=== PATIENT | male | born 1955 | race Caucasian/White ===

== ENCOUNTER 2022-04-24 09:00 | Emergency (ER) | payer MEDICARE, BC, SELFPAY ==
[2022-04-24 09:02] VITALS: BP 185/94; PULSE 65; RESP 17; TEMP 36.6; O2SAT 95; BMI 27.1
--- NOTE | 2022-04-24 09:33 | ED.VIS.DYS ---
HPI History of Present Illness Chief Complaint: Shortness of Breath Informant: patient Onset/Context/Timing Onset: Days (5) Context: gradual Timing: Continuous Quality: Positive for Dyspnea on exertion and Wheezing Worsened by: Exertion Relieved by: Rest Associated Symptoms cough; Negative for rhinorrhea, post nasal drip, ear pain, fever, sore throat, chills or sweats Chest Pain: Positive for None Narrative Narrative: Patient presents with shortness of breath that has been getting worse over the past 5 days. Patient states his breathing is worse with exertion. Patient states he walks approximately 20 feet before he has to stop and catch his breath. Patient states his breathing is better with rest. Patient was seen in urgent care and was given prescriptions for prednisone, albuterol inhaler, and Zithromax. reports that they were told that he should feel much better in 24 hours. states there was no x-ray done at the urgent care since he was going to be treated with antibiotics and steroids even if the x-ray was negative. Patient denies any fevers or chills. Patient states he is coughing up some sputum but does not look at it. Patient denies any chest pain. PE Risk Factors: Negative for Cancer, OCP + Smoking + > 35, Prior DVT or PE, Recent immobilization or Recent surgery [facility] Medical History Carotid artery disease HTN (hypertension) Hyperlipidemia Home Medications atorvastatin 20 mg tablet 20 mg PO DAILY 11/12/20 [History Last Taken Unknown] hydrochlorothiazide 12.5 mg tablet 12.5 mg PO DAILY 11/12/20 [History Last Taken Unknown] losartan 100 mg tablet 100 mg PO DAILY 11/12/20 [History Last Taken Unknown] omeprazole 20 mg capsule,delayed release 20 mg PO DAILY 11/12/20 [History Last Taken Unknown] famotidine 20 mg tablet (Acid Electrolysis Operator (famotidine)) 20 mg PO DAILY 09/03/21 [History Last Taken Unknown] Allergy/AdvReac Type Severity Reaction Status Date / Time No Known Allergies Allergy Verified 04/24/22 09:00 Family History Father Cancer Mother Myocardial infarction Surgical History History of shoulder surgery Social History household members: spouse housing: house Smoking Status: Former smoker alcohol intake: never what type of physical activity do you participate in: none do you feel safe at home: Yes ROS ROS ED Constitutional Constitutional ED: Denies chills or fever(s) Eyes Eyes: Denies blurry vision or change in vision ENT ENT ED: Denies rhinorrhea or sore throat Cardiovascular Cardiovascular: Denies chest pain or palpitations Respiratory/Chest Respiratory/Chest: Reports cough and dyspnea Gastrointestinal Gastrointestinal: Reports nausea; Denies vomiting Genitourinary Genitourinary ED: Denies dysuria or hematuria Musculoskeletal Musculoskeletal: Reports back pain; Denies neck pain Integumentary Denies abscess or rash Neurologic Neurologic: Denies headache(s) or weakness Allergic/Immunologic Allergic/Immunologic ED: Denies mouth swelling or urticaria EXAM Physical Exam Const Vital Signs: 04/24/22 09:02 04/24/22 09:18 04/24/22 10:01 Temperature 97.9 F Temperature Source Temporal Pulse Rate 65 70 Respiratory Rate 17 16 Respiratory Effort Short of Breath Respiratory Depth Normal Respiratory Pattern Normal Normal Blood Pressure 185/94 H Blood Pressure Mean 124 Pulse Ox 95 Oxygen Delivery Method Room Air 04/24/22 10:01 04/24/22 09:57 Temperature 97.9 F Temperature Source Temporal Pulse Rate 95 Respiratory Rate 22 H Respiratory Effort Respiratory Depth Respiratory Pattern Blood Pressure 184/89 H Blood Pressure Mean 120 Pulse Ox 96 96 Oxygen Delivery Method Room Air Room Air Positive well nourished and well developed General Appearance ED: well developed HEENT Reports moist mucous membranes Neck supple and no JVD Resp normal respiratory effort Auscultation: wheezes expiratory wheezes and throughout Cardio regular rate, regular rhythm and no murmurs GI normal to inspection, nondistended, normoactive bowel sounds and non-tender Palpation: soft Extremity normal to inspection General Extremety ED: Negative for edema or tenderness General Extremity: Negative for edema Neuro oriented x3, CN's II-XII intact bilaterally and no sensory deficits noted Sensorium / Orientation: alert Motor Exam: strength 5/5 throughout Psych mental status grossly normal Skin no rashes or lesions noted MDM MDM MDM Narrative Medical decision making narrative: Patient was given a DuoNeb aerosol here. Patient was given IV fluids. EKG was obtained. On my interpretation, it showed a normal sinus rhythm with a rate of 63. [place] interval, QRS interval, and QTc intervals were all normal. [place] was normal. There are no acute ST or T wave changes. CBC was within normal limits. Comprehensive metabolic profile was within normal limits. High-sensitivity troponin was normal. D-dimer was normal. COVID-19 rapid antigen was obtained and was negative. Influenza A and influenza B rapid antigens were obtained and were negative. PA and lateral chest x-ray was obtained. There are 2 views. On my interpretation, lung calixto are clear. There is normal cardiac silhouette. Bony thorax is normal. There is no acute process noted. Radiologist also interpreted the x-ray and agrees. Patient was advised of his findings. Patient was advised that this is most likely a viral illness. Patient was instructed to continue his prednisone as prescribed. Patient was instructed to continue his inhaler as prescribed. Patient was instructed to take the last dose of his Zithromax. Patient was advised it may not improve his symptoms at all. Patient was instructed to follow-up with his primary care physician in 5 to 7 days. Patient understood and was agreeable with the plan. All questions were answered. Lab Data Attestation: I reviewed the patient's lab results. Labs: Laboratory Results - last 24 hr 04/24/22 04/24/22 04/24/22 09:53 09:53 09:53 WBC 5.1 RBC 4.40 L Hgb 13.8 Hct 39.7 L MCV 90.2 MCH 31.4 MCHC 34.8 RDW Std Deviation 40.4 RDW Coeff of [place] 12.1 Plt Count 237 MPV 8.9 Immature Gran % (Auto) 0.400 Neut % (Auto) 51.9 Lymph % (Auto) 32.5 [place] % (Auto) 14.6 H Eos % (Auto) 0.2 Baso % (Auto) 0.4 Absolute Neuts (auto) 2.6 Absolute Lymphs (auto) 1.65 Nucleated RBC % 0 Differential Comment SCANNED Reactive Lymphocytes 1+ D-Dimer Quant (PE/DVT) 0.48 Sodium 131 L Potassium 3.5 Chloride 98 Carbon Dioxide 25.0 Anion Gap 8 BUN 17 Creatinine 0.91 Estim Creat Clear Calc 69.46 Est GFR (MDRD) Af Amer 108 Est GFR (MDRD) Non-Af 89 BUN/Creatinine Ratio 18.8 Glucose 104 Calcium 8.9 Total Bilirubin 0.60 AST 57 H ALT 83 H Alkaline Phosphatase 50 Troponin I High Sens 9 Total Protein 7.5 Albumin 3.5 Globulin 4.0 Albumin/Globulin Ratio 0.9 Radiography Chest X-Ray - ED: 2 View, Read by ED Physician, Read by Radiologist and No Acute Disease Diagnostic Testing: Clinical Impression(s) from Imaging Studies Chest X-Ray 04/24/22 09:38 IMPRESSION: No acute cardiopulmonary abnormality. Old granulomatous disease. Electronically Signed: Herberth Eric MD at 10:37 EST , EKG Initial EKG: Attestation: I personally reviewed and interpreted this EKG as follows: Interpretation: Sinus Rhythm (63) and No Acute Injury Pattern Prior EKG tracings: not available for review Prior: No Prior Discharge Plan Triage Chief Complaint: Shortness of Breath ED Provider: Marc Valverde Dx/Rx/DC Orders Clinical Impression: Viral upper respiratory infection, HTN (hypertension) Instructions: ED URI, Viral W/ Wheezing (Adult) Prescriptions: No Action atorvastatin 20 mg tablet 20 mg PO DAILY Label Comments: TAKE ONE TABLET BY MOUTH DAILY IN THE EVENING losartan 100 mg tablet 100 mg PO DAILY Label Comments: TAKE 1 (ONE) TABLET DAILY IN THE EVENING hydrochlorothiazide 12.5 mg tablet 12.5 mg PO DAILY omeprazole 20 mg capsule,delayed release(DR/EC) 20 mg PO DAILY famotidine [Acid Electrolysis Operator (famotidine)] 20 mg tablet 20 mg PO DAILY Primary Care Provider: Heriberto Mcmahon Referrals: Heriberto Mcmahon MD [Primary Care Provider] - 5-7 Days Disposition Disposition: Home, Self Care
--- NOTE | 2022-04-24 09:38 | EKG12_ITS ---
Test Reason : SOB Blood Pressure : / mmHG Vent. Rate : 063 BPM Atrial Rate : 063 BPM P-R Int : 128 ms QRS Dur : 088 ms QT Int : 404 ms P-R-T Axes : 031 047 045 degrees QTc Int : 413 ms Normal sinus rhythm Normal ECG Confirmed by GIOVANNA SHELBY, MAXINE ([id number]), graphic editor CATRINA RAMEY ([id number]) on 04/25/2022 12:52:07 PM Referred By: RAJESH Confirmed By:MAXINE HEREDIA MD
--- NOTE | 2022-04-24 09:38 | RAD_ITS ---
EXAM: XR CHEST, 2 VIEWS CLINICAL INDICATION: Dyspnea TECHNIQUE: Frontal and lateral views of the chest. This report was created using iPosition report generation technology. COMPARISON: None. FINDINGS: LUNGS AND PLEURAL SPACES: Small dense nodules within both lungs consistent with old granulomatous disease. Lungs are otherwise clear. No pneumothorax. No effusion. HEART: Normal heart size. MEDIASTINUM: No mediastinal or hilar mass. BONES/JOINTS: No acute abnormality. SOFT TISSUES: Normal. LYMPH NODES: Small calcified hilar lymph nodes. RAD/Chest PA and Lateral IMPRESSION: No acute cardiopulmonary abnormality. Old granulomatous disease. Electronically Signed: Hreberth Eric MD at 10:37 EST ,
[2022-04-24] MEDS: Ipratropium/Albuterol Sulfate 3 ML AMPUL.NEB INHALATION (09:48)
[2022-04-24 09:57] VITALS: BP 184/89; PULSE 95; RESP 22; TEMP 36.6; O2SAT 96
[2022-04-24] MEDS: 0.9% Normal Saline 1,000 ML 1000 ML IV (09:59)
[2022-04-24 10:01] VITALS: PULSE 70; RESP 16; O2SAT 96
[2022-04-24 10:07] LABS: Absolute Lymphocyte Count 1.65 X10^3/uL (0.83-4.51); Absolute Neutrophil Count 2.6 X10^3/uL (2.0-7.7); Basophil# 0.02 X10^3/uL; Basophil% 0.4 % (0-1); Eosinophil# 0.01 X10^3/uL; Eosinophils% 0.2 % (0-5); Hematocrit 39.7 % (40-54); Hemoglobin 13.8 g/dL (13.0-16.5); Lymphocyte # 1.65 X10^3/ul (0.83-4.51); Lymphocyte % 32.5 % (19-41); Mean Corp Hgb Conc 34.8 g/dL (32-36); Mean Corpuscular Hgb 31.4 pg (27.0-32.0); Mean Corpuscular Volume 90.2 fL (80-94); Mean Platelet Vol. 8.9 fl (6.2-12.0); Monocyte# 0.74 X10^3/uL; Monocyte% 14.6 % (0-10); NRBC Flagged by Analyzer 0 % (0-5); Neutrophil # 2.63 X10^3/uL (2.7-7.7); Neutrophil % 51.9 % (47-70); POSITIVE MORPHOLOGY YES; Platelet Count 237 K/mm3 (150-450); RBC Distribution Width CV 12.1 % (11.6-14.6); RBC Distribution Width SD 40.4 fl (35.1-43.9); White Blood Count 5.1 K/mm3 (4.4-11.0)
[2022-04-24 10:29] LABS: D-Dimer Quantitative (DVT/PE) 0.48 FEU/ug/m (0.27-0.49)
[2022-04-24 10:35] LABS: Differential Indicated SCAN CRITERIA MET
[2022-04-24 10:36] LABS: ALB/GLOB Ratio 0.9 RATIO (0.9-2.4); AST(SGOT) 57 U/L (15-37); Alanine Aminotransfer ALT/SGPT 83 U/L (16-61); Albumin, Serum 3.5 g/dL (3.2-5.0); Alkaline Phosphatase 50 U/L (45-117); Anion Gap 8 (5-15); BUN 17 mg/dL (7-18); BUN/Creat Ratio 18.8 RATIO (10-20); Calcium,Total 8.9 mg/dL (8.5-10.1); Chloride 98 mmol/L (98-107); Creatinine, Serum 0.91 mg/dL (0.70-1.30); EST Glomerular Filtration Rate 89 mL/min (>60); Est Glom Filt Rate - Afr Amer 108 mL/min (>60); Estimated Creatinine Clearance 69.46 ml/min; Glucose 104 mg/dL (74-106); Potassium 3.5 mmol/L (3.5-5.1); Protein, Total 7.5 g/dL (6.4-8.2); Sodium Level 131 mmol/L (136-145); Troponin-I HS 9 pg/mL (3.0-78.0)
[2022-04-24 10:56] LABS: Differential Comment SCANNED; Reactive Lymphocyte 1+
[2022-04-24 12:45] VITALS: BP 153/96
== END 2022-04-24 12:47 | disposition home or self-care (01) ==
PROVIDERS: Emergency Provider Emergency Medicine; PCP Family Medicine; Visit Provider Emergency Medicine
DX: J06.9 Acute upper respiratory infection, unspecified (principal); I10 Essential (primary) hypertension; E78.5 Hyperlipidemia, unspecified; M54.9 Dorsalgia, unspecified; Z87.891 Personal history of nicotine dependence
CPT/HCPCS: 71046; 80053; 84484; 85025; 85379; 87428; 93005; 94640; 96360; 99251; 99252; 99284; J7030; G0463

== ENCOUNTER → 2023-01-19 | Outpatient (CLI) | payer MEDICARE, BC, SELFPAY ==
--- NOTE | 2023-01-19 11:04 | MRI_ITS ---
STUDY: MRI LEFT ELBOW REASON FOR EXAM: Male, 67 years old. pain and injury, pain posterior shoulder, possible torn bicep from elbow or shoulder injury TECHNIQUE: Standardized fat and water weighted pulse sequences were obtained in all 3 orthogonal planes. COMPARISON: None. FINDINGS: Normal radio-capitellum articulation. There is a moderate tendinosis of the common extensor tendon origin with a moderate partial deep surface tear. A small elbow joint effusion is also present. There is high-grade tearing of the anterior band of the radial collateral ligament. Normal ulnotrochlear articulation. Normal ulnar collateral ligamentous complex. There is a mild to moderate tendinosis of the common flexor tendon origin with a small partial deep surface tear. The cubital tunnel is normal, with a normal ulnar nerve. Normal biceps tendon and distal insertion. Normal lacertus fibrosis. Normal brachialis musculotendinous insertion. Normal triceps tendon and teno-osseous insertion. Normal olecranon process. The visualized distal humerus, proximal radius, and ulna are normal. The visualized muscles of the distal arm and proximal forearm are normal. The soft tissue structures are unremarkable. MRI/Upper Ext Joint Only(Routine) IMPRESSION: 1. High-grade tearing of the anterior band and the radial collateral ligament 2. Moderate tendinosis with moderate deep surface partial tearing of the common extensor tendon complex 3. Small elbow joint effusion 4. Mild to moderate tendinosis and partial deep surface tearing of the common flexor tendon complex. Electronically Signed: Xander Gibbons MD at 13:32 EDT ,
--- NOTE | 2023-01-19 11:04 | MRI_ITS ---
STUDY: MRI LEFT SHOULDER REASON FOR EXAM: Male, 67 years old. pain and injury, pain posterior shoulder, possible torn bicep from elbow or shoulder injury TECHNIQUE: Standardized fat and water weighted pulse sequences were obtained in all 3 orthogonal planes. COMPARISON: X-ray of the left shoulder dated January 13, 2023 FINDINGS: There is moderate supraspinatus tendinosis with tendon thickening, but without a demonstrated tendon tear. Normal infraspinatus tendon. Normal subscapularis tendon. Normal teres minor tendon. Normal supraspinatus muscle. Normal infraspinatus muscle. Normal subscapularis muscle. Normal teres minor muscle. The glenohumeral articulation is moderately narrowed. Normal humeral head and visualized proximal humerus. Normal biceps labral complex. There is high-grade near full-thickness tearing of the intracapsular aspect elongated biceps tendon. A small SLAP tear is present with high-grade degeneration and radial tearing of the free edge of the superior glenoid labrum. A small glenohumeral joint effusion is also present. Normal capsulo- ligamentous complex. Normal rotator interval. There is moderate osteoarthritis of the acromioclavicular articulations. There is a Type II morphology (curved), with a neutral orientation. There is no subacromial-subdeltoid bursal fluid. Normal visualized coracohumeral and coracoacromial ligaments. Normal quadrilateral space. Normal axillary space. Normal deltoid muscle. Normal trapezius muscle. MRI/Upper Ext Joint Only(Routine) IMPRESSION: 1. High-grade near full-thickness tearing of the intracapsular aspect elongated biceps tendon 2. A small SLAP tear is present with high-grade degeneration and radial tearing of the free edge of the superior glenoid labrum. 3. Moderate narrowing of the glenohumeral articulation 4. Moderate supraspinatus tendinosis Electronically Signed: Xander Gibbons MD at 13:37 EDT ,
== END | disposition home or self-care (01) ==
PROVIDERS: PCP Family Medicine; Referring Provider Physician Assistant; Visit Provider Physician Assistant
DX: S46.202A Unspecified injury of muscle, fascia and tendon of other parts of biceps, left arm, initial encounter (principal)
CPT/HCPCS: 73221

== ENCOUNTER → 2024-03-19 | Outpatient (CLI) | payer OTHER, SELFPAY | END | disposition home or self-care (01) | PROVIDERS: PCP Family Medicine; Referring Provider Physician Assistant; Visit Provider Physician Assistant | DX: S46.912A Strain of unspecified muscle, fascia and tendon at shoulder and upper arm level, left arm, initial encounter (principal) | CPT/HCPCS: 73030 ==

== ENCOUNTER → 2024-04-25 | Outpatient (CLI) | payer OTHER, MEDICARE, SELFPAY ==
--- NOTE | 2024-04-25 06:44 | MRI_ITS ---
STUDY: MRI LEFT SHOULDER REASON FOR EXAM: Male, 68 years old. Shoulder strain. TECHNIQUE: Standardized fat and water weighted pulse sequences were obtained in all 3 orthogonal planes. COMPARISON: None. FINDINGS: There is a full-thickness tear of the distal supraspinatus tendon, with 2.4 cm medial tendon retraction. There is infraspinatus tendinosis. There is a full-thickness tear of the distal subscapularis tendon, with 3.2 cm medial tendon retraction. Normal teres minor tendon. Normal supraspinatus muscle. Normal infraspinatus muscle. There is mild atrophy and fatty infiltration of the subscapularis muscle. Normal teres minor muscle. There is a small glenohumeral joint effusion with fluid communicating into the subacromial-subdeltoid bursa. Normal humeral head and visualized proximal humerus. Normal biceps labral complex. Normal intracapsular long biceps tendon. Normal labrum. Normal capsulo-ligamentous complex. Normal rotator interval. There is hypertrophic acromioclavicular arthrosis, with inferior osteophyte formation, with mild effacement of the torn end of the supraspinatus tendon (coronal T2 series 8 image 11). There is a Type II morphology (curved), with a neutral orientation. Normal visualized coracohumeral and coracoacromial ligaments. Normal quadrilateral space. Normal axillary space. Normal deltoid muscle. Normal trapezius muscle. MRI/Upper Ext Joint Only(Routine) IMPRESSION: Full-thickness tear of the distal supraspinatus tendon, with 2.4 cm medial tendon retraction. Infraspinatus tendinosis. Full-thickness tear of the distal subscapularis tendon, with 3.2 cm medial tendon retraction. Mild atrophy and fatty infiltration of the subscapularis muscle. Small glenohumeral joint effusion with fluid communicating into the subacromial-subdeltoid bursa. Hypertrophic acromioclavicular arthrosis, with inferior osteophyte formation, with mild effacement of the torn end of the supraspinatus tendon. Electronically Signed: Ranulfo Tena MD at 10:08 EST ,
== END | disposition home or self-care (01) ==
LOC: MRI 06:28
PROVIDERS: PCP Family Medicine; Referring Provider Physician Assistant; Visit Provider Physician Assistant
DX: S46.912A Strain of unspecified muscle, fascia and tendon at shoulder and upper arm level, left arm, initial encounter (principal)
CPT/HCPCS: 73221